=== PATIENT | female | born 1935 | race Caucasian/White ===

== ENCOUNTER 2016-12-08 10:42 | Emergency (ER) | payer OTHER ==
[~2016-12-08] VITALS: Ht 157.5 cm; Wt 63.5 kg
[~2016-12-08 10:42] MED LIST: DEXILANT30 MG PO; LEVOTHROID0.075 MG PO; MOBIC7.5 MG PO
--- NOTE | 2016-12-08 10:57 | ED SKIN/ALLERGY COMPLAINT ---
History of Present Illness General Chief Complaint: Skin Rash/ Abcess Stated Complaint: RASH ON LEFT ARM, ?POSION ROBERTO Source: patient, family Exam Limitations: no limitations Vital Signs & Intake/Output Vital Signs & Intake/Output Vital Signs Date Time Temp Pulse Resp B/P B/P Pulse O2 O2 Flow FiO2 Mean Ox Delivery Rate 12/08 1234 97.2 67 15 155/74 97 Room Air Room Air 12/08 1045 97.1 90 18 162/85 95 Room Air Allergies Coded Allergies: MDX - Celecoxib (From CELEBREX) (Intermediate, BLEEDING 07/29/12) MDX - Lactose (LACTOSE) (GI UPSET 07/29/12) MDX - Naproxen (From NAPROSYN) (TROUBLE BREATHING 07/29/12) MDX - SULFA (sulfonamide) (UNKNOWN 07/29/12) Reconcile Medications Amlodipine Besylate 5 MG TABLET 1 TAB PO DAILY HIGH BLOOD PRESSURE (Reported) Cephalexin (Keflex) 500 MG CAPSULE 1 CAP PO TID cellulitis Dexlansoprazole (Dexilant) 30 MG CAP.BP 1 TAB PO DAILY ACID REFLUX ( Reported) Hydroxyzine HCl 50 MG TABLET 1 TAB PO Q8HP PRN itching Levothyroxine Sodium (Levothroid) 75 MCG TABLET 1 TAB PO DAILY DIRECTED ( Reported) Levothyroxine Sodium 75 MCG TABLET 1 TAB PO DAILY THYROID HEALTH (Reported) Meloxicam (Mobic) 7.5 MG TAB 1 TAB PO DAILY PRN PAIN Pantoprazole Sodium 40 MG TABLET. 1 TAB PO DAILY ACID REFLUX (Reported) Prednisone 10 MG TABLET 4 TAB PO ONCE DAILY dermatits 4 tabs PO x 3 days then 3 tabs PO x 3 days then 2 tabs PO x 3 days then 1 tab PO x 3 days Triage Note: 81 Y/O FEMALE C/O ? POISON ROBERTO TO L ARM SINCE YESTERDAY; STATES SHE THINKS SHE GOT IT FROM HER DOG. HAS LARGE PURPLE AREA TO L BICEP WITH VARIOUS PATCHY AREAS TO L ARM. PT REPORTS ITCHING AT ALL SITES. Triage Nurses Notes Reviewed? yes Onset: Abrupt Duration: week(s): (1), continues in ED, getting worse Timing: single episode today Severity: mild, moderate Severity Numbers: 7 Location: hands (right), extremities (left) Possible Factors: exposure to allergen (poison roberto) No Modifying Factors: none Associated Symptoms: rash LMP (ages 10-50): post menopausal : No Patient currently breastfeeds: No HPI: 81-year-old female history of hypertension and GERD presents complaining of an itchy rash on her left arm and right hand. Patient reports the rash first started on her face approximately 1 week ago spreading. She saw her primary care doctor when the rash first started and was given a short course of steroids which removed the rash from her face. That 2 or 3 days ago after the steroid stops the rash reappeared on the left upper arm and right hand. The rash is very itchy and she notes some pain swelling and bruising around the left upper arm lesions. No fevers, discharge, spreading redness, contacts with similar rash, chest pain, shortness of breath. She denies any history of diabetes. She has been trying to use topical Benadryl without significant improvement. (KAILEY ARTHUR PA-C) Past History Travel History Traveled to [place] past 21 day No Medical History Any Pertinent Medical History? see below for history Neurological: NONE EENT: NONE Cardiovascular: hypertension Respiratory: NONE Gastrointestinal: NONE Hepatic: NONE Renal: NONE Musculoskeletal: NONE Psychiatric: NONE Endocrine: NONE Blood Disorders: NONE Cancer(s): NONE DISTRIBUTION SUPERVISOR/Reproductive: NONE Surgical History Surgical History: none Psychosocial History What is your primary language Hungarian Tobacco Use: Never used Family History Hx Contributory? No (KAILEY ARTHUR PA-C) Review of Systems Review of Systems Constitutional: Reports: no symptoms. EENTM: Reports: no symptoms. Respiratory: Reports: no symptoms. Cardiovascular: Reports: no symptoms. GI: Reports: no symptoms. Genitourinary: Reports: no symptoms. Musculoskeletal: Reports: no symptoms. Skin: Reports: see HPI, erythema, rash. Neurological/Psychological: Reports: no symptoms. Hematologic/Endocrine: Reports: no symptoms. Immunologic/Allergic: Reports: no symptoms. All Other Systems: Reviewed and Negative (KAILEY ARTHUR PA-C) Physical Exam Physical Exam General Appearance: well developed/nourished, no apparent distress, alert, awake Comments: General: Hemodynamically stable. Afebrile. Well-developed well-nourished person in no acute distress. Head: Atraumatic, normocephalic Eyes: EOMI bilaterally, PERRLA, conjunctiva are not injected, no discharge, no nystagmus, fundus grossly normal bilaterally Nose: Atraumatic, no rhinorrhea, mucosa is not erythematous, no epistaxis. Sinuses are non-tender Ears: TM pearly zuluaga color bilaterally, external canal is clear, no discharge, hearing is normal Mouth: Appropriate dentition, no gingival bleeding, moist mucus membranes, no oral lesions, tonsils not erythematous or enlarged and free of exudate. Uvula rises midline. Neck: Supple, full active ROM, no lymphadenopathy, no midline tenderness to palpation, no thyromegaly, no tracheal deviation. Back: Non-tender, full active ROM, no scoliosis, no CVA tenderness Cardiovascular: regular rate and rhythm, no murmurs, rubs, or gallops. No JVD Respiratory: Chest is nontender. Regular respiratory rate and effort. No accessory muscle use. Lungs clear to auscultation bilaterally. Abdomen: Soft, non-tender, non-distended, no organomegaly. No rebound tenderness or guarding. Normoactive bowel sounds. Extremities: No edema. No gross deformities. No joint swelling. No calf swelling or tenderness. Full active and passive ROM. Strength 5/5 in upper and lower extremities. Peripheral pulses 2+ bilaterally, Patellar DTR 2+ Neuro: No confusion. Motor and sensory function is intact. Appropriate gait. Cerebellar function intact. Skin: Warm and dry. Appropriate turgor. Her multiple erythematous vesicular papules located on the left upper and lower arms as well as the right hand. There is associated soft tissue swelling, bruising and underlying erythema associated with the left upper extremity vesicles. No discharge. Neurovascular supply is intact to the left upper extremity. (JERSON MEDINA,KAILEY) Progress Differential Diagnosis: abscess/cellulitis, allergic reaction, angioedema, contact dermatitis, erythema multiforme, lyme disease, piyriasis rosea, shingles , urticaria, SECONDARY BACTERIAL INFECTION Plan of Care: Rash is consistent with poison roberto rash with possible secondary bacterial infection. Patient will be treated with prednisone and oral cephalexin. Discussed with Dr. Cruz. (JERSON MEDINA,KAILEY) Departure Departure Disposition: HOME OR SELF CARE Condition: Stable Clinical Impression Primary Impression: Rhus dermatitis Secondary Impressions: Cellulitis and abscess of upper arm and forearm Referrals: AVELINO MCGREGOR,BRENDEN Trujillo (PCP/Family) Additional Instructions: Keep the skin clean and dry. Take prednisone and cephalexin as directed for the full course. Take a probiotic to replace healthy bacteria. Hydroxyzine can be used every 6 hours as needed for itching. This may cause drowsiness. All appointment this coming week with her primary care doctor for a recheck. Return to the emergency department with any concerns. Please go over all results of today's visit with your primary care doctor. Contact your primary care doctor to let them know you were here in the emergency room. There may be nonspecific findings which may not be related to your visit today here in the emergency room but may require further evaluation and chronic monitoring by your primary care doctor. If you had a laceration today the chance of foreign body always remains. You should follow-up with your primary care doctor for recheck in 3-5 days for a wound check. If you had an x-ray done there is a chance that a fracture could have been missed on initial read and you should follow-up with your primary care doctor for repeat x-rays if symptoms persist. If your blood pressure was elevated here in the emergency room please have rechecked by her primary care doctor within the next 48 hours by your primary care doctor. If you were prescribed a narcotic here in the emergency room or any type of controlled substances you're not allowed to drive while taking this medication or operate any type of heavy machinery. Narcotics can make you feel lightheaded dizziness nausea and can cause constipation. You may need to order picker a stool softener. Thank you for choosing [facility] emergency room. Please return to the emergency room immediately if you have any other concerns worsening of symptoms. Departure Forms: Customer Survey General Discharge Information Prescriptions: Current Visit Scripts Cephalexin (Keflex) 1 CAP PO TID #21 CAP Hydroxyzine HCl 1 TAB PO Q8HP PRN itching #21 TAB Prednisone 4 TAB PO ONCE DAILY #30 TAB 4 tabs PO x 3 days then 3 tabs PO x 3 days then 2 tabs PO x 3 days then 1 tab PO x 3 days (KAILEY ARTHUR PA-C) PA/PROCESS OWNER Co-Sign Statement Statement: ED Attending supervision documentation- [X] I saw and evaluated the patient. I have also reviewed all the pertinent lab results and diagnostic results. I agree with the findings and the plan of care as documented in the PA's/PROCESS OWNER's documentation. [X] I have reviewed the ED Record and agree with the PA's/PROCESS OWNER's documentation. [] Additions or exceptions (if any) to the PAs/PROCESS OWNER's note and plan are summarized below: [] (JAMES MCGREGOR,ANNA)
[2016-12-08] MEDS ORDERED: PANTOPRAZOLE SO40 M1 PO (11:27)
[2016-12-08] MEDS ORDERED: AMLODIPINE BESYL5 M1 PO (11:28)
[2016-12-08] MEDS ORDERED: LEVOTHYROXINE75 MCG PO (11:28)
[2016-12-08] MEDS ORDERED: PREDNISONE10 M2 PO (12:29)
[2016-12-08] MEDS ORDERED: HYDROXYZINE HCL50 M1 PO (12:29)
[2016-12-08] MEDS ORDERED: KEFLEX500 M1 PO (12:29)
[2016-12-08 12:34] VITALS: BP 155/74
== END 2016-12-08 12:36 ==
LOC: ERH 10:42
DX: L30.9 Dermatitis, unspecified (principal); L03.113 Cellulitis of right upper limb; L03.114 Cellulitis of left upper limb